=== PATIENT | female | born 1970 | race Caucasian/White ===

== ENCOUNTER 2019-11-10 16:24 | Outpatient (RCR) | payer BC, SELFPAY ==
--- NOTE | 2019-11-10 16:59 | PTOPEVAL ---
Thank you for referring this patient to [facility] [place]. Please review, sign, date and return this plan of care GIOVANI. I agree with and certify that the following plan of care is medically necessary. Referring Physician Date Admitting Provider: Attending Provider: Yair Holman MD Referring Provider: *PT Outpatient Evaluation Start: 11/10/19 16:32 Freq: Status: Active Protocol: Document 11/10/19 16:32 JTF (Rec: 11/10/19 16:58 J [id number]) Therapy Assessment Status Assessment Status Assessment Status Evaluation Evaluation Information Problem Diagnosis L knee OA Onset 10/27/19 Additional Evaluation Detail lefs = Subjective Information patient she has been having Query Text:As Reported By Patient/ pain in the L knee for about 2 Family months. she reports she was ambulating up a flight of steps on 10/27/19 and felt a big pop in her knee. she reports since then she has been unable to bear full weight on the L knee. patient reports she did have an X-ray but no MRI as of this date. she reports she has had an injection. she reports mild improvement since her injection. Prior Level of Function Comments Additional Prior Level of Function prior to 10/27/19. she reports Comments she was walking fair, but reports she was having a bit of problems. she reports she has not been able work due to stair and walking. she work sat [employer] in [employer]. Pain Assessment Timing of Pain Assessment Timing of Pain Assessment Assessment Pain Scale Pain Scale Used Numeric (1 - 10) Self Report Pain Assessment Left Knee(s) Reported Pain Level 5 Pain Description Sharp,Stabbing Pain Frequency Acute,Continuous Current Pain Intensity 5 Lowest Pain Intensity 5 Greatest Pain Intensity 10 Pain Aggravating Factors Walking,Weight Bearing/ Standing Pain Score Pain Score 5: Self Report Lower Extremity Range of Motion Knee Range of Motion Right Knee Flexion Range of Motion - Active 105 Knee Extension Range of Motion - Active -5 Query Text: Left Knee Flexion Range of M
--- NOTE | 2019-12-07 11:33 | PCPTNOTE ---
12/07/19 - patient cancelled her therapy visit this date due to feeling under the weather. MARGUERITE
== END 2019-12-12 16:57 | disposition home or self-care (01) ==
LOC: CHSPT 16:24
PROVIDERS: Visit Provider Orthopaedic Surgery
DX: M17.12 Unilateral primary osteoarthritis, left knee (principal)
CPT/HCPCS: 97014; 97016; 97110; 97162; 97530; G0283

== ENCOUNTER 2020-10-21 04:51 | Emergency (ER) | payer BC, SELFPAY ==
--- NOTE | ~2020-10-21 | CT_ITS ---
EXAMINATION: CTA chest PE protocol DATE: 10/21/2020 07:05 INDICATION: Shortness of breath. TECHNIQUE: Computed tomography angiography (CTA) of the chest was performed with 100 mL Omnipaque-350 intravenous contrast timed to evaluate the pulmonary arteries. Coronal maximum intensity projection 3D-reconstructions were created by the technologist. Automated exposure control and iterative reconst ruction technique were employed. The dose-length product was 933.69 mGy-cm. COMPARISON: Chest CT 04/13/2016 FINDINGS: The lungs demonstrate mild atelectasis. A calcified right lung nodule and calcified mediast inal lymph nodes are consistent with old granulomatous disease. There are trace pleural effusions. Ca rdiomegaly is noted. No pericardial effusion. There is no pulmonary embolus. There are changes of cho lecystectomy. There is mild thoracic spondylosis. IMPRESSION: 1. No pulmonary embolus. Sensitivity is mildly decreased by motion artifact. 2. Cardiomegaly. Reviewed, dictated and finalized at location A. ESPONDENCE SPECIALIST
--- NOTE | ~2020-10-21 | XR_ITS ---
EXAMINATION: XR chest 1V portable DATE: 10/21/2020 05:35 INDICATION: Shortness of breath. Body aches. TECHNIQUE: A single frontal view of the chest was obtained. COMPARISON: Chest 2 views 04/13/2016, chest CT 10/21/2020 FINDINGS: There is no pneumonia, pleural effusion, or pneumothorax. Cardiomegaly is noted. IMPRESSION: 1. Cardiomegaly. Reviewed, dictated and finalized at location A. EVARD GLASSWARE REPLACER IMPRESSION: 1. Cardiomegaly.
[2020-10-21 04:59] VITALS: BP 157/77; PULSE 75; RESP 18; TEMP 36.2; O2SAT 100
--- NOTE | 2020-10-21 05:17 | ECG_ITS ---
Measurements Intervals [place] Rate: 62 P: 30 TN: 148 QRS: 6 QRSD: 89 T: 22 QT: 396 QTc: 403 Interpretive Statements SINUS RHYTHM DELAYED PRECORDIAL R/S TRANSITION BASELINE ARTIFACT- I, II, III, AVR, AVF, V4-V6 BORDERLINE ECG Electronically Signed On 10-21-2020 8:29:26 WATER RECLAMATION SYSTEMS OPERATOR by Neto Tavarez D.O.
--- NOTE | 2020-10-21 05:20 | ED.CHESTPAIN ---
HPI - Chest Pain General Chief Complaint: Unspecified <Bernardino L. MD Dolores Beck Last Filed: 10/21/20 06:58> Stated Complaint: shortness of breath <Bernardino L. MD Dolores Beck Last Filed: 10/21/20 06:58> Time Seen by Provider: 10/21/20 05:20 <MD Dolores Kwan Last Filed: 10/21/20 06:58> Source: patient <Bernardino Keith. MD Dolores Beck Last Filed: 10/21/20 06:58> Mode of arrival: ambulatory <Bernardino L. MD Dolores Beck Last Filed: 10/21/20 06:58> Limitations: no limitations <MD Dolores Kwan Last Filed: 10/21/20 06:58> History of Present Illness HPI narrative: Patient comes in after having fever at home yesterday of 100. She has had body aches and nausea along with shortness of breath over the last two days. She comes in due to severe body aches. This has not been relieved by measures taken at home. The chest discomfort, nausea and emesis started two days ago. She has had a cough for the last two days as well. She also complains of chest heaviness. <MD Dolores Kwan Last Filed: 10/21/20 06:58> MD complaint: chest heaviness <Bernardino L. MD Dolores Beck Last Filed: 10/21/20 06:58> Prior episodes: No <Bernardino L. MD Dolores Beck Last Filed: 10/21/20 06:58> Onset: during rest <Bernardino L. MD Dolores Beck Last Filed: 10/21/20 06:58> Pain location: right chest and parasternal <Bernardino L. MD Dolores Beck Last Filed: 10/21/20 06:58> Pain radiation: none <Bernardino L. MD Dolores Beck Last Filed: 10/21/20 06:58> Severity: mild <Bernardino L. MD Dolores Beck Last Filed: 10/21/20 06:58> Quality: aching and heaviness <Bernardnio L. MD Dolores Beck Last Filed: 10/21/20 06:58> Relieving factors: nothing <Bernardino L. MD Dolores Beck Last Filed: 10/21/20 06:58> Exacerbating factors: nothing <Bernardino L. MD Dolores Beck Last Filed: 10/21/20 06:58> Context: recent illness <Bernardino L. MD Dolores Beck Last Filed: 10/21/20 06:58> Associated symptoms: nausea <Bernardino L. MD Dolores Beck Last Filed: 10/21/20 06:58> Risk Factors Coronary artery disease risk factors: hypertension <Bernardino L. MD Dolores Beck Last Filed: 10/21/20 06:58> Thoracic aortic dissection risk factors: none <Bernardino L. MD Dolores Beck Last Filed: 10/21/20 06:58> Pulmonary embolism risk factors: morbid obesity <Bernardino L. MD Dolores Beck Last Filed: 10/21/20 06:58> Related Data On Oral Contraceptives: No <Bernardino L. MD Dolores Beck Last Filed: 10/21/20 06:58> Home Medications: Home Medications Medication Instructions Recorded Confirmed aspirin [Lolly Aspirin] 325 mg PO DAILY 10/27/19 10/21/20 atorvastatin [Lipitor] 40 mg PO DAILY 10/27/19 10/21/20 lisinopril [Prinivil] See Rx Instructions .ROUTE .COMPLEX 10/27/19 10/21/20 metoprolol tartrate [Lopressor] See Rx Instructions .ROUTE .COMPLEX 10/27/19 10/21/20 venlafaxine [Effexor XR] 75 mg PO DAILY 10/27/19 10/21/20 furosemide 20 mg tablet 20 mg PO QAM 11/07/19 10/21/20 <Bernardino L. MD Dolores Beck Last Filed: 10/21/20 06:58> Allergies/Adverse Reactions: Allergies Allergy/AdvReac Type Severity Reaction Status Date / Time latex Allergy Unknown Unknown Verified 11/28/19 07:58 ibuprofen AdvReac Unknown Other Verified 11/28/19 07:58 <Bernardino LMD Dolores Bass Last Filed: 10/21/20 06:58> Review of Systems Constitutional: Constitutional: Reports no additional constitutional complaints <Bernardino L. MD Dolores Beck Last Filed: 10/21/20 06:58> Eyes: Eyes: Reports no additional eye complaints <Bernardino L. MD Dolores Beck Last Filed: 10/21/20 06:58> ENT: Reports system reviewed and no additional complaints, except as documented <MD Dolores Kwan Last Filed: 10/21/20 06:58> Cardiovascular: Cardiovascular: Reports no additional cardiovascular complaints <Bernardino L. MD Ebony - Last Filed: 10/21/20 06:58> Respiratory: Respiratory: Reports no additional respiratory complaints <Bernardino L. MD Ebony - Last Filed: 10/21/20 06:58> Gastrointestinal: Gastrointestinal: Reports no additional gastrointestinal complaints <Bernardino L. MD Ebony - Last Filed: 10/21/20 06:58> Genitourinary: Genitourinary: Rep
[2020-10-21 05:44] LABS: Hematocrit 43.8 % (35.0-49.0); Hemoglobin 13.7 g/dL (12.0-15.0); Mean Corpuscular HGB Conc 31.3 g/dL (32.0-36.0); Mean Corpuscular Hemoglobin 29.8 pg (27.0-31.0); Mean Corpuscular Volume 95.2 fL (78.0-102.0); Mean Platelet Volume 9.9 fl (9.2-11.8); Platelet Count Result 199 K/mm3 (150-420); Red Cell Distribution Width 13.1 % (11.6-14.4); White Blood Count 3.7 K/mm3 (4.8-10.8)
[2020-10-21] MEDS: KETOROLAC (*BKC) 60 MG/2 ML VIAL IM (05:59)
[2020-10-21 06:03] LABS: Alanine Aminotransferase 16 U/L (14-59); Albumin Level 3.4 g/dL (3.4-5.0); Alkaline Phosphatase 52 U/L (46-116); Anion Gap 8 mmol/L (8-16); Aspartate Amino Transferase 15 U/L (15-37); BNP 32.5 pg/mL (0-100); Bilirubin,Total 0.2 mg/dL (0.00-1.00); Blood Urea Nitrogen 8 mg/dL (7-18); Calcium 8.3 mg/dL (8.5-10.1); Carbon Dioxide 30 mmol/L (21-32); Chloride 103 mmol/L (98-108); Estimated CRCL calculation 96 ml/min; Estimated Glomerular Filt Rate > 60; Glucose 100 mg/dL (70-99); Osmolality Calculated 290 mOsm/kg (285-295); Potassium 3.7 mmol/L (3.5-5.1); Sodium 141 mmol/L (136-145); Total Protein 7.4 g/dL (6.4-8.2); Troponin I 7.4 ng/L (0.00-60.4)
[2020-10-21] MEDS: ONDANSETRON HCL ODT 4 MG TABLET PO (06:03)
[2020-10-21 06:05] LABS: SARS-CoV-2 Ag Positive (Negative)
[2020-10-21 06:05] LABS: Influenza Control Valid (Valid)
[2020-10-21 06:10] LABS: Band Neutrophils Percent 1 % (0-6); Basophils Percent Manual 0 % (0-1); Eosinophils Absolute Manual 0.07 K/mm3 (0.02-0.5); Eosinophils Percent Manual 2 % (1-6); Lymphocytes Absolute Manual 1.66 K/mm3 (1.1-4.5); Lymphocytes Percent Manual 45 % (18-44); Monocytes Absolute Manual 0.51 K/mm3 (0.1-0.90); Monocytes Percent Manual 14 % (3-9); Neutrophils Absolute Manual 1.44 K/mm3 (1.7-7.2); Neutrophils Percent Manual 38 % (46-73); Platelet Estimate Adequate (Adequate); Total Cells Counted 100
[2020-10-21 06:36] VITALS: BP 142/70; PULSE 75; RESP 18; TEMP 36.4; O2SAT 100
[2020-10-21] MEDS: DEXAMETHASONE SOD PHOS INJ 4 MG/ML VIAL 10 MG IV PUSH (07:39)
[2020-10-21 07:45] VITALS: BP 159/105; PULSE 72; RESP 18; TEMP 36.8; O2SAT 96
== END 2020-10-21 07:45 | disposition home or self-care (01) ==
PROVIDERS: Emergency Medicine; Emergency Provider Emergency Medicine
DX: U07.1 COVID-19 (principal); R06.02 Shortness of breath
CPT/HCPCS: 36415; 71045; 71275; 80053; 83880; 84484; 85025; 85380; 87426; 87804; 93005; 96372; 96374; 99283; 99284; A9270; J1100; J1885; Q9965; Q9967

== ENCOUNTER 2021-06-19 10:38 | Outpatient (CLI) | payer BC, SELFPAY ==
--- NOTE | ~2021-06-19 | CT_ITS ---
EXAMINATION: CT abdomen pelvis w con DATE: 06/19/2021 11:18 INDICATION: Pelvic pain TECHNIQUE: Computed tomography (CT) of the abdomen and pelvis was performed with 100 cc Omnipaque 350 intravenous contrast. Automated exposure control and iterative reconstruction technique were employe d. Exam dose: 1082.52 mGy-cm total exam DLP. COMPARISON: 10/21/2020 CT pulmonary scan FINDINGS: The lung bases are clear of infiltrate or consolidation. Mild cardiomegaly. No pericardial or pleural effusion. Status post cholecystectomy. The liver, bile ducts, pancreas, pancreatic duct, spleen and adrenal gla nds are unremarkable. No pancreatic calcification. No renal mass lesion or urinary tract calculus or hydroureteronephrosis is detected. The uterus, adnexa and urinary bladder are unremarkable. Normal caliber of the abdominal aorta. No intraperitoneal or retroperitoneal or pelvic mass lesion or adenopathy or ascites. No bowel obstruction, bowel wall thickening, pneumatosis or intraperitoneal free air. No CT evidence of appendicitis is detected. Fat-containing umbilical hernia. No suspicious osteolytic or osteoblastic lesions are noted. Lumbar degenerative disc disease. Degener ative spurring of the lower thoracic spine. Bilateral hip osteoarthritis. IMPRESSION: Status post cholecystectomy Reviewed, dictated and finalized at Location A. Reviewed, dictated and finalized at location A. IMPRESSION: Status post cholecystectomy
[2021-06-19 11:10] LABS: Estimated Glomerular Filt Rate > 60
== END 2021-06-19 10:39 ==
PROVIDERS: PCP Family Medicine
DX: R10.2 Pelvic and perineal pain (principal); M17.0 Bilateral primary osteoarthritis of knee; Z90.49 Acquired absence of other specified parts of digestive tract; K42.9 Umbilical hernia without obstruction or gangrene
CPT/HCPCS: 74177; Q9967

== ENCOUNTER 2021-09-04 06:20 | Emergency (ER) | payer BC, SELFPAY ==
--- NOTE | ~2021-09-04 | CT_ITS ---
EXAMINATION: CT lumbar spine wo [facility] EXAM DATE: 09/04/2021 07:54 INDICATION: Back pain Lbp, radiates Down Gerard Legs With Numbness/Cramping, no known injury, Rt Worst . TECHNIQUE: Spiral CT of the lumbar spine was performed without contrast. Axial, coronal and sagittal images lumbar spine were reviewed. The dose-length product (DLP) for this examination was 1275.67 m Gy-cm. The exposure was tailored according to patient size (auto mA exposure control), and iterativ e reconstruction (ASIR) was used as additional dose reduction technique. There is no prior study for comparison. FINDINGS: No endplate erosive change. Vacuum disc phenomenon at L4-5. Moderate diffuse lumbar disc di sease. L4 limbus vertebral body. The vertebral bodies are aligned in the AP dimension. There are no a cute fractures identified. Advanced lower lumbar facet arthropathy. Imaged portion of sacrum unremark able. There is mild mid lumbar dextroscoliosis. Paraspinal soft tissue is unremarkable. Level by level evaluation: T12-L1: Disc does not extend beyond the endplate margin. Facet arthropathy: Mild to moderate. Neural foraminal stenosis: No stenosis. Central canal stenosis: No stenosis. L1-L2: There is a mild diffuse disc bulge. Facet arthropathy: Moderate. Neural foraminal stenosis: Mild to moderate bilateral. Central canal stenosis: Mild to moderate. L2-L3: There is a mild to moderate diffuse disc bulge. Facet arthropathy: Moderate. Neural foraminal stenosis: Mild to moderate bilateral. Central canal stenosis: Mild to moderate. L3-L4: There is a moderate diffuse disc bulge. Facet arthropathy: Moderate. Neural foraminal stenosis: Mild to moderate bilateral. Central canal stenosis: Moderate. L4-L5: There is a moderate diffuse disc bulge. Facet arthropathy: Moderate to severe. Neural foraminal stenosis: Moderate left, mild to moderate right. Central canal stenosis: Moderate to severe. L5-S1: There is a mild to moderate diffuse disc bulge. Facet arthropathy: Moderate to severe. Neural foraminal stenosis: Severe right, moderate to severe left. Central canal stenosis: Moderate to severe. IMPRESSION: 1. Advanced lower lumbar spondylosis as detailed above. 2. Mild dextroscoliosis. 3. No acute findings. Reviewed, dictated and finalized at location B.
[2021-09-04 06:44] VITALS: BP 143/93; PULSE 66; RESP 17; TEMP 36.6; O2SAT 97
--- NOTE | 2021-09-04 06:58 | ED.GENADULT ---
HPI - General Adult General Chief complaint: Back Pain/Injury Stated complaint: Back pain Source: patient and family Mode of arrival: ambulatory Limitations: no limitations History of Present Illness HPI narrative: Shirley is a 51F with a PMH of OA, obesity, depression, HTN and a CVA that presented to the ED with back pain. Pain started a couple months ago. She was diagnosed as having a pinched nerve in her back. She has been taking Tylenol and naproxen without much relief. Pain starts in her low back and radiates to her lateral hips. She states that her whole legs are numb. She states that with very little walking she gets diffuse cramping. It is partially relieved with leaning forward. She denies any loss of bowel or bladder control and paralysis. No recent trauma or falls. Related Data Home Medications Medication Instructions Recorded Confirmed aspirin [Lolly Aspirin] 325 mg PO DAILY 10/27/19 09/04/21 atorvastatin [Lipitor] 40 mg PO DAILY 10/27/19 09/04/21 lisinopril [Prinivil] See Rx Instructions .ROUTE .COMPLEX 10/27/19 09/04/21 metoprolol tartrate [Lopressor] See Rx Instructions .ROUTE .COMPLEX 10/27/19 09/04/21 venlafaxine [Effexor XR] 75 mg PO DAILY 10/27/19 09/04/21 hydrochlorothiazide 25 mg PO DAILY 09/04/21 09/04/21 omeprazole 40 mg PO BID 09/04/21 09/04/21 Allergies Allergy/AdvReac Type Severity Reaction Status Date / Time latex Allergy Unknown Unknown Verified 11/28/19 07:58 ibuprofen AdvReac Unknown Other Verified 11/28/19 07:58 Review of Systems Constitutional: Constitutional: Reports no additional constitutional complaints Eyes: Eyes: Reports no additional eye complaints ENT: Reports system reviewed and no additional complaints, except as documented Cardiovascular: Cardiovascular: Reports no additional cardiovascular complaints Respiratory: Respiratory: Reports no additional respiratory complaints Gastrointestinal: Gastrointestinal: Reports no additional gastrointestinal complaints Genitourinary: Genitourinary: Reports no additional female genitourinary complaints Musculoskeletal: Musculoskeletal: Reports as per HPI Integumentary/Breasts: Skin/Breast: Reports system reviewed and no additional complaints, except as docu Neurologic: Reports as per HPI Psychiatric: Psychiatric: Reports no additional psychiatric complaints Endocrine: Endocrine: Reports no additional endocrine complaints Hematologic/Lymphatic: Hematologic/Lymphatic: Reports no additional hematologic/lymphatic complaints Allergic/Immunologic: Allergic/Immunologic: Reports no additional allergic/immunologic complaints [facility] Past Medical History Medical History (Updated 09/05/21 @ 00:00 by Antonio Dakelvin) Arthritis CVA (cerebral vascular accident) Depression Eczema History of angina HTN (hypertension) Left ankle sprain Migraines MRSA (methicillin resistant staph aureus) culture positive Skin problem TIA (transient ischemic attack) Surgical History Surgical History H/O tubal ligation History of cardiac cath History of cholecystectomy Family History Family History Mother Family history of tuberculosis Hypertension Father Family history of diabetes mellitus in first degree relative Family history of lung cancer Hypertension Sibling Family history of lung cancer Other Family history of arthritis Family history of malignant neoplasm of thyroid Social History Social History Years smoked: 14 Smoking status: Former smoker Alcohol intake: current Alcohol use details: Occasional Additional living arrangements comments: Fiance and 3 grandsons. 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
[2021-09-04] MEDS: KETOROLAC 30 MG/ML VIAL (*BKC) IM (07:11)
[2021-09-04] MEDS: CYCLOBENZAPRINE HCL 10 MG TABLET PO (07:12)
--- NOTE | 2021-09-04 08:04 | PC.NURSE ---
pt returns from CT. tolerated procedure well. voiced sl pain relief with meds given. pt repositioned on stretcher. family at bedside.
[2021-09-04 08:05] VITALS: BP 141/86; PULSE 78; RESP 16; TEMP 36.8; O2SAT 98
[2021-09-04 08:31] VITALS: BP 142/80; PULSE 71; RESP 16; TEMP 36.6; O2SAT 98
== END 2021-09-04 08:34 | disposition home or self-care (01) ==
PROVIDERS: Emergency Provider Family Medicine; PCP Family Medicine
DX: M48.00 Spinal stenosis, site unspecified (principal)
CPT/HCPCS: 72131; 96372; 99283; 99284; A9270; J1885

== ENCOUNTER 2022-03-02 08:18 | Outpatient (CLI) | payer BC, SELFPAY ==
[2022-03-02 10:12] LABS: SARS-CoV-2 RNA PCR Negative (Negative)
== END 2022-03-02 08:19 | disposition home or self-care (01) ==
LOC: CHSLAB 08:21
PROVIDERS: PCP Family Medicine; Visit Provider Family Medicine
DX: Z01.818 Encounter for other preprocedural examination (principal); Z20.822 Contact with and (suspected) exposure to COVID-19
CPT/HCPCS: C9803; U0003; U0005

== ENCOUNTER 2023-04-15 22:28 | Observation (INO) | payer OTHER, SELFPAY ==
--- NOTE | ~2023-04-15 | XR_ITS ---
EXAMINATION: XR chest 1V portable INDICATION: Shortness of breath TECHNIQUE: Portable AP chest at 2247 hours COMPARISON: 10/21/2020 FINDINGS: The lungs are free of acute opacities. No pleural effusion or pneumothorax. The cardiomedia stinal silhouette is normal. IMPRESSION: 1. No acute cardiopulmonary abnormality. Reviewed, dictated and finalized at location F.
--- NOTE | ~2023-04-15 | CT_ITS ---
Clinical Indication: Shortness of breath CT Scan of the Chest with Contrast: Technique: Contiguous sections were acquired throughout the chest after intravenous administration of 75 cc of Omnipaque 350. Dose reduction technique was used on this scan by utilizing automated exposu re control and iterative reconstruction technique. The dose-length product (DLP) was 997.92 mGy-cm. COMPARISON: 10/21/2020 Findings: There is no evidence of any significant mediastinal, hilar or axillary lymphadenopathy. No large cent ral pulmonary embolus seen. Respiratory motion artifact limits evaluation for smaller more peripheral pulmonary emboli. There is no evidence of aortic dissection or aneurysm. There is no evidence of pleural or pericardial effusion. The lungs are clear. No pulmonary nodules or infiltrates are noted. Images through the upper abdomen reveal no abnormalities. Impression: No definite evidence of pulmonary embolus, aortic dissection, or aortic aneurysm. Respiratory motion artifact limits evaluation for small peripheral pulmonary emboli. Clear lungs. Reviewed, dictated and finalized at location . Impression: No definite evidence of pulmonary embolus, aortic dissection, or aortic aneurys m. Respiratory motion artifact limits evaluation for small peripheral pulmonary emboli. Clear lungs.
--- NOTE | ~2023-04-15 | US_ITS ---
EXAMINATION:US venous doppler LE RT INDICATION:Right lower extremity pain extending from the groin TECHNIQUE: Multiple grayscale, color flow and Doppler images of the right lower extremity deep venous systems were obtained and reviewed. COMPARISON:No prior studies for comparison. FINDINGS: The common femoral, superficial femoral and popliteal veins demonstrate normal respiratory variation, augmentation and compressibility. Color flow is also seen within the posterior tibial, pe roneal, greater saphenous and profunda veins. IMPRESSION: 1: No lower extremity deep venous thrombosis. Reviewed, dictated and finalized at location A.
--- NOTE | 2023-04-15 22:30 | ED.EXTPRO ---
HPI - Extremity Problem General Chief complaint: Extremity Problem,Nontraumatic Stated complaint: Rt leg pain Time Seen by Provider: 04/15/23 22:30 Source: patient and family Mode of arrival: ambulatory Limitations: no limitations History of Present Illness HPI Narrative: this is a 52-year-old female with a history of hyperlipidemia hypertension and depression , TIA, history of blood clots in her mother. is having right lower extremity pain with calf pain and tenderness started about 3 days ago and has intensified over the last 24hours the patient states that she was traveling and had been passenger in a vehicle and she was on vacation in the traveling [place]. Patient states that there is some mild shortness of breath with no chest pain no chest pressure no fever chills no abdominal pain no known injury to her lower extremity. Complaint: extremity pain Onset (ago): day(s) Pain Consistency: constant Location: right Severity scale (1-10): >10 Quality: aching Radiation: proximal Relieving factors: nothing Exacerbating factors: nothing Associated symptoms: shortness of breath Related Data Home Medications Medication Instructions Recorded Confirmed aspirin 325 mg tablet (Lolly 325 mg PO DAILY 10/27/19 04/15/23 Aspirin) atorvastatin 40 mg tablet (Lipitor) 40 mg PO DAILY 10/27/19 04/15/23 metoprolol tartrate 50 mg tablet 50 mg PO BID 10/27/19 04/15/23 (Lopressor) chlorthalidone 25 mg tablet 25 mg PO DAILY 04/15/23 04/15/23 lisinopril 20 mg tablet 20 mg PO BID 04/15/23 04/15/23 venlafaxine 150 mg 150 mg PO DAILY 04/15/23 04/15/23 capsule,extended release 24 hr Allergies Allergy/AdvReac Type Severity Reaction Status Date / Time latex Allergy Unknown Unknown Verified 11/28/19 07:58 ibuprofen AdvReac Unknown Other Verified 11/28/19 07:58 Review of Systems Review of Systems: All systems reviewed & are unremarkable except as noted in HPI and below Integumentary/Breasts: Skin/Breast: Reports system reviewed and no additional complaints, except as docu PMFSH Past Medical History Medical History (Updated 04/16/23 @ 00:27 by Kendrick Garcia MD) Arthritis CVA (cerebral vascular accident) Depression Eczema History of angina HTN (hypertension) Left ankle sprain Migraines MRSA (methicillin resistant staph aureus) culture positive Skin problem TIA (transient ischemic attack) Surgical History Surgical History H/O tubal ligation History of cardiac cath History of cholecystectomy Family History Family History Mother Family history of tuberculosis Hypertension Father Family history of diabetes mellitus in first degree relative Family history of lung cancer Hypertension Sibling Family history of lung cancer Other Family history of arthritis Family history of malignant neoplasm of thyroid Social History Social History Years smoked: 14 Smoking status: Former smoker Alcohol intake: current Alcohol use details: Occasional Living arrangements: with family Additional living arrangements comments: Fiance and 3 grandsons. 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[employer] Gender identity (if verbalized by the patient): Female Exam Const: General: healthy appearing Nutritional Appearance: well nourished Orientation/consciousness: patient oriented x3 Limitations: no limitations HENMT: Head: normal to inspection Face and sinus: normal facial exam Eyes: Conjunctivae: conjunctivae normal Neck: Neck: normal visual inspection Chest: Chest palpation & inspection: normal inspection of the chest Resp: Effort & Inspection: normal respiratory effort Cardio: Rate: regular rate Rhythm: regular rhythm GI: GI Palp: Yes Soft to palpation Auscultation: normal
[2023-04-15 22:31] VITALS: BP 152/86; PULSE 88; RESP 20; TEMP 36.6; O2SAT 99
--- NOTE | 2023-04-15 22:31 | ECG_ITS ---
Measurements Intervals [place] Rate: 71 P: 26 [place]: 167 QRS: 22 QRSD: 97 T: 21 QT: 391 QTc: 427 Interpretive Statements SINUS RHYTHM WITH OCCASIONAL VENTRICULAR PREMATURE COMPLEXES ABNORMAL ECG COMPARED TO ECG 10/21/2020 05:58:51 VENTRICULAR ECTOPIC IS NOW SEEN Electronically Signed On 04-16-2023 12:57:01 CDT by Kendrick Abel M.D.
[2023-04-15] MEDS: MORPHINE SULFATE (*CRX) 4 MG/ML INJ IV PUSH (22:45)
[2023-04-15 22:59] LABS: Basophils Absolute Auto 0.06 K/mm3 (0.00-0.10); Basophils Percent Auto 0.6 % (0.0-1.0); Eosinophils Absolute Auto 0.53 K/mm3 (0.02-0.50); Eosinophils Percent Auto 5.5 % (1.0-6.0); Hematocrit 44.8 % (35.0-49.0); Immature Granulocyte Absolute 0.04 K/mm3 (0.00-0.00); Immature Granulocyte Percent A 0.4 % (0.0-0.0); Lymphocytes Absolute Auto 2.71 K/mm3 (1.10-4.50); Lymphocytes Percent Auto 28.1 % (18.0-42.0); Mean Corpuscular HGB Conc 31.3 g/dL (32.0-36.0); Mean Corpuscular Hemoglobin 30.1 pg (27.0-31.0); Mean Corpuscular Volume 96.3 fL (78.0-102.0); Mean Platelet Volume 9.7 fl (9.2-11.8); Monocytes Percent Auto 8.3 % (2.0-11.0); Neutrophils Absolute Auto 5.5 K/mm3 (1.7-7.2); Neutrophils Percent Auto 57.1 % (50.0-70.0); Platelet Count Result 280 K/mm3 (150-420); Red Blood Count 4.65 M/mm3 (4.20-5.40); White Blood Count 9.7 K/mm3 (4.8-10.8)
[2023-04-15 23:14] LABS: Lactic Acid Reflex 1.2 mmol/L (0.4-2.0)
[2023-04-15 23:14] LABS: INR 0.9; Prothrombin Time 10.3 Seconds (9.50-12.10)
[2023-04-15 23:19] LABS: Alanine Aminotransferase 17 U/L (14-59); Albumin Level 3.7 g/dL (3.4-5.0); Alkaline Phosphatase 64 U/L (46-116); Anion Gap 10 mmol/L (8-16); Aspartate Amino Transferase 17 U/L (15-37); Bilirubin,Total 0.3 mg/dL (0.00-1.00); Blood Urea Nitrogen 19 mg/dL (7-18); Calcium 8.9 mg/dL (8.5-10.1); Carbon Dioxide 28 mmol/L (21-32); Chloride 103 mmol/L (98-108); D Dimer 0.72 mg/L (0.19-0.50); Estimated CRCL calculation 76 ml/min; Estimated Glomerular Filt Rate 49; Glucose 92 mg/dL (70-99); NT Pro B Type Natriuretic Pept 51 pg/mL (0-125); Osmolality Calculated 294 mOsm/kg (285-295); Potassium 3.7 mmol/L (3.5-5.1); Sodium 141 mmol/L (136-145); Total Protein 7.9 g/dL (6.4-8.2); Troponin I 5.7 ng/L (0.00-60.4)
[2023-04-15 23:20] LABS: CRP 1.2 mg/dL (0.0-0.9)
[2023-04-15 23:25] LABS: Appearance Urine Clear (Clear); Bilirubin Urine Negative (Negative); Blood Urine 1+ (Negative); Color Urine Light Yellow (Yellow); Glucose Urine UA Negative (Negative); Ketones Urine Negative (Negative); Leukocyte Esterase Ur Negative LEU/UL (Negative); Nitrate Urine Negative (Negative); Protein Urine Negative (Negative); Specific Grav Ur >= 1.030 (1.010-1.020); Urobilinogen Urine 0.2 mg/dL (0.2-1.0); pH Urine 5.5 (5.0-8.0)
[2023-04-15 23:36] LABS: Add Urine Microscopic? YES; Amorphous Sediment Urine Moderate; Bacteria Urine 1+ /hpf; Mucus Urine Heavy /lpf; RBC Urine 0-2 /hpf (0-2); Squamous Epithelial Cell Urine Moderate /hpf (Few); WBC Urine 0-3 /hpf (0-3)
[2023-04-16] MEDS: HYDROmorphone HCL INJ (*CRX) 2 MG/ML VIAL 1 MG IV PUSH (00:32)
[2023-04-16] MEDS: ENOXAPARIN 60 MG/0.6 ML SYRINGE 36 MG SUB-Q (00:35)
[2023-04-16] MEDS: ENOXAPARIN 100 MG/ML SYRINGE SUB-Q (00:35)
[2023-04-16 00:41] VITALS: BP 112/71; PULSE 65; RESP 18; O2SAT 96
[2023-04-16 00:53] VITALS: BP 109/60; PULSE 86; RESP 20; TEMP 36.6; O2SAT 99
[2023-04-16 00:59] VITALS: O2SAT 97
[2023-04-16 01:08] VITALS: BMI 44.6
--- NOTE | 2023-04-16 01:08 | ADMGEN ---
This patient, Shirley Erazo, was admitted to 2nd Floor Room 204-1. Patient oriented to hospital policies and general routines including ID bracelet, bed and alarms, visiting hours, pain management, procedures, bathroom and other care routines, personal items, smoking policy, room service/diet, and visiting hours. Information on how to activate the Rapid Response Team has been discussed. Patient is encouraged to report perceived risks to care and to ask questions if they do not understand what they are told or what they should do.
[2023-04-16] MEDS: SODIUM CHLORIDE 0.9% IV 1,000 ML 100 ML IV CONT (01:19)
[2023-04-16 02:05] VITALS: PULSE 86; RESP 20; O2SAT 97
[2023-04-16 04:56] LABS: Basophils Absolute Auto 0.06 K/mm3 (0.00-0.10); Basophils Percent Auto 0.7 % (0.0-1.0); Eosinophils Absolute Auto 0.52 K/mm3 (0.02-0.50); Eosinophils Percent Auto 6.2 % (1.0-6.0); Hematocrit 38.6 % (35.0-49.0); Hemoglobin 12.3 g/dL (12.0-15.0); Immature Granulocyte Absolute 0.03 K/mm3 (0.00-0.00); Immature Granulocyte Percent A 0.4 % (0.0-0.0); Lymphocytes Absolute Auto 2.73 K/mm3 (1.10-4.50); Lymphocytes Percent Auto 32.7 % (18.0-42.0); Mean Corpuscular HGB Conc 31.9 g/dL (32.0-36.0); Mean Corpuscular Hemoglobin 30.4 pg (27.0-31.0); Mean Corpuscular Volume 95.3 fL (78.0-102.0); Mean Platelet Volume 10.1 fl (9.2-11.8); Monocytes Absolute Auto 0.79 K/mm3 (0.10-0.90); Monocytes Percent Auto 9.5 % (2.0-11.0); Neutrophils Absolute Auto 4.2 K/mm3 (1.7-7.2); Neutrophils Percent Auto 50.5 % (50.0-70.0); Platelet Count Result 271 K/mm3 (150-420); Red Blood Count 4.05 M/mm3 (4.20-5.40); White Blood Count 8.4 K/mm3 (4.8-10.8)
[2023-04-16 05:17] LABS: Alanine Aminotransferase 20 U/L (14-59); Albumin Level 3.3 g/dL (3.4-5.0); Alkaline Phosphatase 58 U/L (46-116); Anion Gap 8 mmol/L (8-16); Aspartate Amino Transferase 13 U/L (15-37); Bilirubin,Total 0.5 mg/dL (0.00-1.00); Blood Urea Nitrogen 19 mg/dL (7-18); Calcium 8.5 mg/dL (8.5-10.1); Carbon Dioxide 29 mmol/L (21-32); Chloride 103 mmol/L (98-108); Estimated CRCL calculation 89 ml/min; Estimated Glomerular Filt Rate 58; Glucose 98 mg/dL (70-99); Osmolality Calculated 292 mOsm/kg (285-295); Potassium 3.2 mmol/L (3.5-5.1); Sodium 140 mmol/L (136-145); Total Protein 6.9 g/dL (6.4-8.2)
[2023-04-16 07:30] VITALS: BP 125/62; PULSE 62; RESP 18; TEMP 36.2; O2SAT 97
[2023-04-16] MEDS: MORPHINE SULFATE (*CRX) 2 MG/ML INJ IV PUSH (07:44)
[2023-04-16] MEDS: ATORVASTATIN 40 MG TABLET PO (09:58)
[2023-04-16] MEDS: CHLORTHALIDONE 25 MG TABLET PO (09:58)
[2023-04-16] MEDS: lisinopriL 20 MG TABLET PO (09:58)
[2023-04-16] MEDS: POTASSIUM CHLORIDE 20 MEQ TABLET 40 MEQ PO (09:58)
[2023-04-16 09:59] VITALS: PULSE 62
[2023-04-16] MEDS: VENLAFAXINE HCL XR 75 MG CAP.ER.24H 150 MG PO (09:59)
[2023-04-16] MEDS: METOPROLOL TARTRATE 50 MG TAB PO (09:59)
[2023-04-16] MEDS: ASPIRIN 325 MG ENTERIC TABLET PO (09:59)
[2023-04-16] MEDS: HYDROcodone/acetaminophen (*CRX) 5-325 MG TABLET 1 TAB PO (11:48)
--- NOTE | 2023-04-16 12:15 | PM.SD2 ---
Same Day Admit/Disch: HPI History of Present Illness Chief complaint: DVT Narrative: Shirley Erazo is a 52 year old female PI narrative: Shirley is a 51F with a PMH of OA, obesity, depression, HTN and a CVA that presented to the ED with back pain. Pain started a couple months ago. She was diagnosed as having a pinched nerve in her back. She has been taking Tylenol and naproxen without much relief. Pain starts in her low back and radiates to her lateral hips. She states that her whole legs are numb. She states that with very little walking she gets diffuse cramping. It is partially relieved with leaning forward. She denies any loss of bowel or bladder control and paralysis. No recent trauma or falls. [facility] Past Medical History Medical History (Updated 04/30/23 @ 11:53 by Deanna Galindo NP) Arthritis CVA (cerebral vascular accident) Depression Eczema History of angina HTN (hypertension) Left ankle sprain Migraines MRSA (methicillin resistant staph aureus) culture positive Sciatic leg pain Skin problem TIA (transient ischemic attack) Surgical History Surgical History H/O tubal ligation History of cardiac cath History of cholecystectomy Family History Family History Mother Family history of tuberculosis Hypertension Father Family history of diabetes mellitus in first degree relative Family history of lung cancer Hypertension Sibling Family history of lung cancer Other Family history of arthritis Family history of malignant neoplasm of thyroid Social History Social History Smoking packs per day: 0.5 Smoking cigarettes per day: 10.0 Years smoked: 19 Smoking pack-years: 9.50 Smoking status: Former smoker Tobacco type: cigarettes Second hand tobacco smoke exposure: No Alcohol intake: current Drinks per week: 2 Alcohol use details: Occasional Substance use: never Substance use type: does not use Lack of Transportation: No Lack of Food: Never True Current Housing: I Have Housing Concerned About Future Housing: No Difficulty Paying Gas/Electric Bills: No Difficulty Paying for Meds: No Currently Unemployed: No Education: Trade/Vocational Certificate Difficulty w/ Childcare or Family Care: No Living arrangements: with family Additional living arrangements comments: Fiance and 3 grandsons. Occupation/Education: occupation Additional occupation/education comments: [employer] Gender identity (if verbalized by the patient): Female Spiritual care concerns: No Same Day Admit/Disch: Med Pre-admit Medications Home Medications Medication Instructions Recorded Confirmed Type aspirin 325 mg tablet (Lolly 325 mg PO DAILY 10/27/19 04/15/23 History Aspirin) atorvastatin 40 mg tablet (Lipitor) 40 mg PO DAILY 10/27/19 04/15/23 History metoprolol tartrate 50 mg tablet 50 mg PO BID 10/27/19 04/15/23 History (Lopressor) chlorthalidone 25 mg tablet 25 mg PO DAILY 04/15/23 04/15/23 History lisinopril 20 mg tablet 20 mg PO BID 04/15/23 04/15/23 History venlafaxine 150 mg 150 mg PO DAILY 04/15/23 04/15/23 History capsule,extended release 24 hr cyclobenzaprine 15 mg 15 mg PO .q8 PRN muscle spasm #20 04/16/23 Rx capsule,extended release 24 hr caps hydrocodone 5 mg-acetaminophen 325 1 tablet PO Q6H PRN Pain Rated 4-6 04/16/23 Rx mg tablet #14 tabs methylprednisolone 4 mg tablets in See Rx Instructions PO .COMPLEX 04/16/23 Rx a dose pack (Medrol (Nadir)) #21 ea Exam Narrative: GENERAL:Well-appearing,obese and in no acute distress. HEAD:Normocephalic, atraumatic. EYES: PERRLA ENT: Nares clear, no rhinorrhea or epistaxis. Mucous membranes moist. CHEST: Clear to auscultation. No respiratory distress. HEART: Regular rate and rhythm. Normal peripheral pulses.
--- NOTE | 2023-04-16 13:30 | PC.NURSE ---
Patient discharging home. IV site removed, tip intact. Dressing applied to site. All discharge instructions and education reviewed with patient. Patient states understanding. All belongings gathered together and sent home with patient. Patient accompanied to front door via wheelchair, left via private vehicle with grandson. Denies any questions at discharge.
--- NOTE | 2023-04-19 10:35 | PC.NURSE ---
Pt states she received and understood the discharge instructions. Pt has no other comments.
== END 2023-04-16 13:30 | disposition home or self-care (01) ==
LOC: CHSED 04-16 00:41 → CHS2ND 04-16 07:15
PROVIDERS: Admitting Provider Internal Medicine; Emergency Provider Emergency Medicine; PCP Family Medicine; Visit Provider Internal Medicine
DX: M48.061 Spinal stenosis, lumbar region without neurogenic claudication (principal); M54.31 Sciatica, right side; E78.5 Hyperlipidemia, unspecified; M17.10 Unilateral primary osteoarthritis, unspecified knee; I10 Essential (primary) hypertension; F32.A Depression, unspecified; Z86.73 Personal history of transient ischemic attack (TIA), and cerebral infarction without residual deficits; Z79.82 Long term (current) use of aspirin; Z87.891 Personal history of nicotine dependence
CPT/HCPCS: 36415; 71045; 71275; 80053; 81001; 83605; 83880; 84484; 85025; 85380; 85610; 85730; 86140; 93005; 93971; 96361; 96372; 96374; 96376; 97161; 99285; A9270; G0378; J1170; J1650; J2270; J7030; Q9967

== ENCOUNTER 2023-04-25 16:39 | Emergency (ER) | payer OTHER, SELFPAY ==
--- NOTE | ~2023-04-25 | CT_ITS ---
EXAMINATION: CTA LE RT DATE: 04/25/2023 22:44 INDICATION: TECHNIQUE: Computed tomographic angiography (CTA) of the right lower extremity was performed with 150 mL Omnipaque 350 intravenous contrast. Automated exposure control and iterative reconstruction techn ique were employed. The dose-length product was 1652.51 mGy-cm. COMPARISON: None. FINDINGS: There is minimal amount of atherosclerotic plaque along the right peroneal artery without hemodynamic ally significant stenosis and a three-vessel runoff to the ankle. No other evident atherosclerotic di sease in the remaining arteries of the right lower limb and pelvis. Small fat-containing umbilical he rnia. Surgical clip in the anterior lower abdomen. Several phleboliths in the pelvis. Bladder, uterus , bilateral adnexa and visualized portions of bowels are unremarkable. Normal appendix. Moderate oste oarthritis and developing ankylosis posteriorly at the bilateral sacroiliac joints. Moderate osteoart hritis at the right hip with subarticular sclerosis at the apex of the right femoral head which could be related to the osteoarthritis but also raises suspicion for osteonecrosis. Mild to moderate osteo arthritis at the right knee with lateral and patellofemoral compartment predominance. Mild to moderat e polyarticular osteoarthritis in the right foot most prominent at the tarsal metatarsal and intermet atarsal articulations. IMPRESSION: 1. No hemodynamically significant stenosis in the pelvis or right lower limb with three-vessel runof f below the ankle. 2. Mild to moderate polyarticular osteoarthritis in the pelvis and right lower limb as detailed above . There is suggestion of possible osteonecrosis of the right femoral head which could be definitively assessed with MRI. 3. Small fat-containing umbilical hernia. Reviewed, dictated and finalized at location A. IMPRESSION: 1. No hemodynamically significant stenosis in the pelvis or right lower limb w ith three-vessel runoff below the ankle. 2. Mild to moderate polyarticular osteoarthritis in the pelvis and right lower limb as detailed above. There is suggestion of possible osteonecrosis of the ri ght femoral head which could be definitively assessed with MRI. 3. Small fat-containing umbilical hernia.
[2023-04-25 16:43] VITALS: BP 159/89; PULSE 64; RESP 16; TEMP 36.5; O2SAT 100
[2023-04-25] MEDS: GABAPENTIN 300 MG CAPSULE 600 MG PO (19:28)
[2023-04-25] MEDS: oxyCODONE HCL (*CRX) 5 MG TAB IR 10 MG PO (19:29)
[2023-04-25 21:03] LABS: Basophils Absolute Auto 0.1 K/mm3 (0.0-0.1); Basophils Percent Auto 0.6 % (0.2-1.2); Eosinophils Absolute Auto 0.4 K/mm3 (0-0.3); Eosinophils Percent Auto 4.9 % (0-4.4); Hematocrit 40.8 % (37.0-47.0); Hemoglobin 13.1 g/dL (12.0-15.0); Immature Granulocyte Absolute 0.02 K/mm3 (0.00-0.031); Immature Granulocyte Percent A 0.2 % (0-0.5); Lymphocytes Absolute Auto 1.83 K/mm3 (0.9-3.2); Lymphocytes Percent Auto 21.2 % (18.3-44.2); Mean Corpuscular HGB Conc 32.1 g/dl (32-36); Mean Corpuscular Hemoglobin 30.3 pg (26-34); Mean Corpuscular Volume 94.2 fl (80-100); Mean Platelet Volume 9.4 fl (7.4-10.4); Monocytes Absolute Auto 0.4 K/mm3 (0.1-0.6); Monocytes Percent Auto 5.1 % (2.6-8.5); Neutrophils Absolute Auto 5.9 K/mm3 (1.3-6.7); Platelet Count Result 257 k/mm3 (150-375); Red Blood Count 4.33 M/mm3 (4.2-5.4); Red Cell Distribution Width 13.7 % (11.5-14.5); White Blood Count 8.6 K/mm3 (4.5-10.0)
[2023-04-25 21:19] LABS: Anion Gap 4 mmol/L (8-16); Blood Urea Nitrogen 15 mg/dL (7-17); CRP 1.2 mg/dL (<1.0); Calcium 8.8 mg/dL (8.4-10.2); Carbon Dioxide 31 mmol/L (22-30); Chloride 104 mmol/L (98-107); Estimated CRCL calculation 124 ml/min; Estimated Glomerular Filt Rate > 60; Glucose 93 mg/dL (65-110); Potassium 3.9 mmol/L (3.4-5.0); Sodium 139 mmol/L (137-145)
[2023-04-25 21:29] LABS: Erythrocyte Sedimentation Rate 21 mm/hr (0-20)
--- NOTE | 2023-04-25 21:58 | ED.GENADULT ---
HPI - General Adult General Chief complaint: Extremity Problem,Nontraumatic Stated complaint: right leg pain, no imjury Time Seen by Provider: 04/25/23 18:51 History of Present Illness HPI narrative: This is a 52-year-old female presenting ED with chief complaint of leg pain. Patient has been having leg pain from her hip down to her toes for the last 2 weeks. it is worse around her right knee and down into her foot. She describes it as a burning tingling sensation that is unbearable. She has been seen at multiple hospitals for this and has gotten 2 DVT scans, CT PE of her chest and x-rays. She has been taking Motrin and Tylenol for pain. She was prescribed hydrocodone but has refused to take it. She says that she is in too much pain to walk. No fever chills nausea vomiting diarrhea. No redness or swelling of the leg. No loss of sensation in the foot. Related Data Home Medications Medication Instructions Recorded Confirmed aspirin 325 mg tablet (Lolly 325 mg PO DAILY 10/27/19 04/15/23 Aspirin) atorvastatin 40 mg tablet (Lipitor) 40 mg PO DAILY 10/27/19 04/15/23 metoprolol tartrate 50 mg tablet 50 mg PO BID 10/27/19 04/15/23 (Lopressor) chlorthalidone 25 mg tablet 25 mg PO DAILY 04/15/23 04/15/23 lisinopril 20 mg tablet 20 mg PO BID 04/15/23 04/15/23 venlafaxine 150 mg 150 mg PO DAILY 04/15/23 04/15/23 capsule,extended release 24 hr Allergies Allergy/AdvReac Type Severity Reaction Status Date / Time latex Allergy Unknown Unknown Verified 04/25/23 19:27 ibuprofen AdvReac Unknown Other Verified 04/25/23 19:27 [facility] Past Medical History Medical History (Updated 04/26/23 @ 01:31 by Mark Teresa MD) Arthritis CVA (cerebral vascular accident) Depression Eczema History of angina HTN (hypertension) Left ankle sprain Migraines MRSA (methicillin resistant staph aureus) culture positive Skin problem TIA (transient ischemic attack) Surgical History Surgical History H/O tubal ligation History of cardiac cath History of cholecystectomy Family History Family History Mother Family history of tuberculosis Hypertension Father Family history of diabetes mellitus in first degree relative Family history of lung cancer Hypertension Sibling Family history of lung cancer Other Family history of arthritis Family history of malignant neoplasm of thyroid Social History Social History Smoking packs per day: 0.5 Smoking cigarettes per day: 10.0 Years smoked: 19 Smoking pack-years: 9.50 Smoking status: Former smoker Tobacco type: cigarettes Second hand tobacco smoke exposure: No Alcohol intake: current Drinks per week: 2 Alcohol use details: Occasional Substance use: never Substance use type: does not use Lack of Transportation: No Lack of Food: Never True Current Housing: I Have Housing Concerned About Future Housing: No Difficulty Paying Gas/Electric Bills: No Difficulty Paying for Meds: No Currently Unemployed: No Education: Trade/Vocational Certificate Difficulty w/ Childcare or Family Care: No Living arrangements: with family Additional living arrangements comments: Fiance and 3 grandsons. Occupation/Education: occupation Additional occupation/education comments: T[employer] Gender identity (if verbalized by the patient): Female Spiritual care concerns: No Exam Narrative: APPEARANCE: No apparent distress. 140 kg Head: atraumatic. EYES: EOMI, NOSE: Atraumatic NECK: Trachea midline RESPIRATORY: No increased rate of breathing CARDIOVASCULAR: RRR, ABDOMINAL: Non-distended MUSCULOSKELETAl: Focal exam of the lower extremities revealed pitting edema of the legs bilaterally. No redness or warmth over the right knee joint. Pulses are +2 and cap refills
[2023-04-25 23:14] VITALS: BP 143/77; PULSE 62; RESP 16; O2SAT 96
[2023-04-25] MEDS: HYDROmorphone HCL INJ (*CRX) 1 MG/ML SYR 0.5 MG IV PUSH (23:23)
[2023-04-26 01:43] VITALS: BP 131/77; PULSE 74; RESP 18; O2SAT 97
== END 2023-04-26 01:44 | disposition home or self-care (01) ==
PROVIDERS: Emergency Provider Emergency Medicine; PCP Family Medicine
DX: M17.11 Unilateral primary osteoarthritis, right knee (principal); F32.A Depression, unspecified; I10 Essential (primary) hypertension; Z86.73 Personal history of transient ischemic attack (TIA), and cerebral infarction without residual deficits
CPT/HCPCS: 36415; 73706; 80048; 85025; 85652; 86140; 96372; 96374; 99284; A9270; J1100; J1170; Q9967